=== PATIENT | female | born 1995 | race Asian ===

== ENCOUNTER 2017-12-29 19:53 | Emergency (ER) | payer OTHER ==
[~2017-12-29] VITALS: Ht 160 cm; Wt 75.3 kg
--- NOTE | ~2017-12-29 | EKG ---
[address] [facility] [place] [address] ELECTROCARDIOGRAM REPORT Name: CATHIE WASHINGTON Room #: DEP [facility]#: [id number] Admission: 12/29/17 Attend Phys: Discharge: 12/29/17 Date of : [birth year] Report #: [id number] THIS REPORT FOR: //name// [facility] ED Test Date: 2017-12-29 Test Time: 20:46:11 Pat Name: CATHIE WASHINGTON Department: Room: Gender: F Filer Helper: lisagj : 1995 Requested By: Nimesh Arana Order Number: [id number] MD: Carlos Frey Measurements Intervals [place] Rate: 65 P: 39 LA: 140 QRS: 71 QRSD: 76 T: 35 QT: 390 QTc: 406 Interpretive Statements Sinus rhythm Normal tracing No previous ECG available for comparison Electronically Signed On 12-30-2017 8:34:56 CDT by Carlos Frey [email or web address] <ELECTRONICALLY SIGNED> By: Carlos Frey MD, [facility] 12/30/17 0834 2046 2046 Carlos Frey MD, FACC /EPI
[2017-12-29 20:30] LABS: HEMATOCRIT 36.7 % (37.0-47.0); HEMOGLOBIN 12.3 gm/dL (12.0-15.0); MCH 27.9 pg (26.0-34.0); MCHC 33.4 g/dL (28.0-37.0); MCV 83.4 fL (80.0-100.0); RBC 4.41 mil/uL (4.20-5.00); RDW 13.5 % (10.5-14.5); WBC 9.4 thou/uL (4.0-11.0)
[2017-12-29 20:38] LABS: ANION GAP 9 mmol/L (7-16); BUN 15 mg/dL (7-18); CALCIUM 8.9 mg/dL (8.5-10.1); CHLORIDE 104 mmol/L (98-107); CO2 24 mmol/L (21-32); CREATININE 0.9 mg/dL (0.6-1.0); GLUCOSE 104 mg/dL (74-106); POTASSIUM 3.7 mmol/L (3.5-5.1); SODIUM 137 mmol/L (136-145)
[2017-12-29 20:46] LABS: TROPONIN-I < 0.04 ng/mL (<0.06)
[2017-12-29 22:14] VITALS: BP 105/68
== END 2017-12-29 22:15 | disposition home or self-care (01) ==
LOC: ER 19:53
PROVIDERS: Physician Assistant
DX: R55 Syncope and collapse (principal)